=== PATIENT | male | born 1995 | race Caucasian/White ===

== ENCOUNTER 2022-05-05 00:14 | Emergency (ER) | payer SELFPAY ==
[~2022-05-05] VITALS: Ht 160 cm; Wt 66.2 kg
[2022-05-05 00:18] VITALS: BP 124/88
--- NOTE | 2022-05-05 00:21 | NUR ---
TO LOBBY A/W BED AMBULATORY
[2022-05-05] MEDS ORDERED: LIDOCAINE MPF 1% 10 MG/ML VIAL INJ ONE (00:25)
--- NOTE | 2022-05-05 00:35 | NUR ---
AMBULATED TO BED #6
--- NOTE | 2022-05-05 00:36 | NUR ---
ermd at bedside
[2022-05-05] MEDS ORDERED: BACITRACIN OINT 500 UNITS/GM PKT TP ONE (00:49)
[2022-05-05] MEDS ORDERED: NAPR-54 PO (01:30)
== END 2022-05-05 01:35 | disposition home or self-care (01) ==
LOC: MED 00:14
DX: L60.0 Ingrowing nail (principal); Z79.899 Other long term (current) drug therapy
CPT/HCPCS: 11730; 99284; J2001